=== PATIENT | female | born 1995 | race Caucasian/White ===

== ENCOUNTER 2016-08-23 12:04 | Emergency (ER) | payer SELFPAY ==
[~2016-08-23] VITALS: Ht 167.6 cm; Wt 135.0 kg
[2016-08-23 12:25] VITALS: BP 140/86
== END 2016-08-23 13:27 | disposition home or self-care (01) ==
LOC: ED 12:59
DX: J03.00 Acute streptococcal tonsillitis, unspecified (principal); F41.9 Anxiety disorder, unspecified; F17.210 Nicotine dependence, cigarettes, uncomplicated
CPT/HCPCS: 99283

== ENCOUNTER 2017-12-25 20:00 | Emergency (ER) | payer SELFPAY ==
[~2017-12-25] VITALS: Ht 167.6 cm; Wt 155.4 kg
[2017-12-25 20:50] LABS: BASOPHILS # (AUTO) 0.07 x10^3/uL (0-0.1); BASOPHILS % (AUTO) 1 % (0-1); EOSINOPHILS # (AUTO) 0.22 x10^3/uL (0-0.4); EOSINOPHILS % (AUTO) 2 % (1-7); LYMPHOCYTES % (AUTO) 30 % (22-44); MD NO; MEAN CORPUSCULAR HEMOGLOBIN 27.9 pg (27.0-34.8); MEAN CORPUSCULAR HGB CONC 34.3 g/dL (32.4-35.8); MEAN CORPUSCULAR VOLUME 81.3 fL (80-100); MEAN PLATELET VOLUME 7.7 fL (7.4-10.4); MONOCYTES % (AUTO) 8 % (2-9); NEUTROPHILS # (AUTO) 6.23 x10^3/uL (1.8-6.8); NEUTROPHILS % (AUTO) 60 % (42-75); PLATELET COUNT 339 x10^3/uL (130-400); RED BLOOD COUNT 4.06 x10^6/uL (3.82-5.3); RED CELL DISTRIBUTION WIDTH 12.8 % (9.6-15.2)
[2017-12-25 20:53] LABS: ALBUMIN 2.9 g/dL (3.4-5.0); ANION GAP 8 mmol/L (5-15); CALCIUM 8.5 mg/dL (8.5-10.1); CHLORIDE 107 mmol/L (98-107)
[2017-12-25 21:42] VITALS: BP 136/73
== END 2017-12-25 22:44 | disposition home or self-care (01) ==
LOC: ED 21:17
DX: L03.116 Cellulitis of left lower limb (principal); R60.0 Localized edema
CPT/HCPCS: 36415; 80048; 82040; 85025; 93005; 93970; 99285

== ENCOUNTER 2018-04-22 03:13 | Emergency (ER) | payer MEDICAID ==
[~2018-04-22] VITALS: Ht 167.6 cm; Wt 163.8 kg
[2018-04-22 03:16] VITALS: BP 141/84
[2018-04-22] MEDS ORDERED: DEXAMETHASONE 4 MG TABLET PO ONE (04:00)
[2018-04-22] MEDS ORDERED: ALBUTEROL/IPRATROPIUM 2.5MG/0.5MG, 3 ML NPPB ONE (04:00)
[2018-04-22] MEDS ORDERED: IBUPROFEN 200 MG TABLET PO ONE (04:00)
[2018-04-22] MEDS ORDERED: DEXAMETHASONE 4 MG TABLET ONE (04:03)
[2018-04-22] MEDS ORDERED: IBUPROFEN 600 MG TABLET ONE (04:03)
[2018-04-22 04:13] LABS: RAPID INFLUENZA A Negative (Negative); RAPID INFLUENZA B Negative (Negative)
== END 2018-04-22 04:46 | disposition home or self-care (01) ==
LOC: ED 03:50
DX: J02.8 Acute pharyngitis due to other specified organisms (principal); B97.89 Other viral agents as the cause of diseases classified elsewhere; J20.9 Acute bronchitis, unspecified; F41.1 Generalized anxiety disorder; F32.9 Major depressive disorder, single episode, unspecified; F17.200 Nicotine dependence, unspecified, uncomplicated
CPT/HCPCS: 71046; 87081; 87147; 87400; 87880; 93005; 94640; 99285; 99406; J7620

== ENCOUNTER 2018-05-26 07:34 | Inpatient (IN) | payer MEDICAID ==
[~2018-05-26] VITALS: Ht 167.6 cm; Wt 165.0 kg
[2018-05-26] MEDS ORDERED: CHARCOAL/SORBITOL 50 GM/240 ML PO ONE (08:00)
[2018-05-26 08:01] LABS: BASOPHILS # (AUTO) 0.08 x10^3/uL (0-0.1); BASOPHILS % (AUTO) 1 % (0-1); EOSINOPHILS # (AUTO) 0.34 x10^3/uL (0-0.4); EOSINOPHILS % (AUTO) 2 % (1-7); LYMPHOCYTES # (AUTO) 3.51 x10^3/uL (1-3.4); LYMPHOCYTES % (AUTO) 25 % (22-44); MD NO; MEAN CORPUSCULAR HEMOGLOBIN 27.5 pg (27.0-34.8); MEAN CORPUSCULAR HGB CONC 34.1 g/dL (32.4-35.8); MEAN CORPUSCULAR VOLUME 80.7 fL (80-100); MEAN PLATELET VOLUME 7.7 fL (7.4-10.4); MONOCYTES # (AUTO) 0.82 x10^3/uL (0.2-0.8); MONOCYTES % (AUTO) 6 % (2-9); NEUTROPHILS # (AUTO) 9.11 x10^3/uL (1.8-6.8); NEUTROPHILS % (AUTO) 66 % (42-75); PLATELET COUNT 368 x10^3/uL (130-400); RED BLOOD COUNT 4.35 x10^6/uL (3.82-5.3); RED CELL DISTRIBUTION WIDTH 13.2 % (9.6-15.2)
[2018-05-26 08:09] LABS: ALBUMIN 3.7 g/dL (3.4-5.0); ANION GAP 10 mmol/L (5-15); CALCIUM 8.6 mg/dL (8.5-10.1); CHLORIDE 105 mmol/L (98-107)
[2018-05-26 08:14] LABS: ALANINE AMINOTRANSFERASE 43 U/L (12-78); ALKALINE PHOSPHATASE 77 U/L (45-117); BILIRUBIN,TOTAL 0.8 mg/dL (0.2-1.0); CREATININE 0.74 mg/dL (0.55-1.02); TOTAL PROTEIN 8.1 g/dL (6.4-8.2)
[2018-05-26 08:17] LABS: AMPHETAMINE SCREEN, URINE Positive (Negative); BARBITURATE SCREEN, URINE Negative (Negative); BENZODIAZEPINE SCREEN, URINE Negative (Negative); CANNABINOID SCREEN, URINE Positive (Negative); COCAINE SCREEN, URINE Negative (Negative); METHADONE SCREEN, URINE Negative (Negative); OPIATE SCREEN, URINE Negative (Negative)
[2018-05-26 08:31] LABS: SALICYLATE LEVEL < 1.7 mg/dL (2.8-20.0)
[2018-05-26 08:32] LABS: ACETAMINOPHEN < 2 mcg/mL (10-30)
[2018-05-26] MEDS ORDERED: ONDANSETRON ODT 8 MG ONE (08:48)
[2018-05-26] MEDS ORDERED: ONDANSETRON ODT 4 MG PO ONE (09:00)
[2018-05-26] MEDS ORDERED: BISACODYL 10 MG SUPP PR PRN (10:00)
[2018-05-26] MEDS ORDERED: POLYETHYLENE GLYCOL 17 GM PACKET PO PRN (10:00)
[2018-05-26] MEDS ORDERED: ACETAMINOPHEN 325 MG TABLET PO PRN (10:00)
[2018-05-26] MEDS ORDERED: ONDANSETRON 2MG/ML, 2ML IVPush PRN (10:00)
[2018-05-26] MEDS ORDERED: DOCUSATE 100 MG CAPSULE PO PRN (10:00)
[2018-05-26] MEDS ORDERED: HALOPERIDOL 1 MG TABLET PO PRN (10:00)
[2018-05-26 11:01] VITALS: BP 158/86
[2018-05-26] MEDS: ENOXAPARIN 40 MG/0.4 ML SQ SCH (11:49)
[2018-05-26] MEDS: NS + 20MEQ KCL 1,000 ML IV SCH (11:49)
[2018-05-26] MEDS: HALOPERIDOL 0.5 MG TABLET PO PRN ×2 (12:10→20:24)
[2018-05-26] MEDS ORDERED: SERT50TA PO (14:22)
[2018-05-26 15:57] VITALS: BP 129/68
[2018-05-26 19:10] VITALS: BP 105/56
[2018-05-27 00:58] VITALS: BP 133/75
[2018-05-27] MEDS: NS + 20MEQ KCL 1,000 ML IV SCH (03:04)
[2018-05-27 05:12] LABS: ANION GAP 9 mmol/L (5-15); CALCIUM 8.4 mg/dL (8.5-10.1); CHLORIDE 107 mmol/L (98-107)
[2018-05-27 05:16] LABS: ALANINE AMINOTRANSFERASE 33 U/L (12-78); ALKALINE PHOSPHATASE 65 U/L (45-117); BILIRUBIN,TOTAL 0.7 mg/dL (0.2-1.0); CREATININE 0.68 mg/dL (0.55-1.02)
[2018-05-27 05:36] LABS: BASOPHILS # (AUTO) 0.03 x10^3/uL (0-0.1); BASOPHILS % (AUTO) 0 % (0-1); EOSINOPHILS # (AUTO) 0.41 x10^3/uL (0-0.4); EOSINOPHILS % (AUTO) 4 % (1-7); LYMPHOCYTES # (AUTO) 3.12 x10^3/uL (1-3.4); LYMPHOCYTES % (AUTO) 33 % (22-44); MD NO; MEAN CORPUSCULAR HEMOGLOBIN 27.9 pg (27.0-34.8); MEAN CORPUSCULAR HGB CONC 33.9 g/dL (32.4-35.8); MEAN CORPUSCULAR VOLUME 82.3 fL (80-100); MEAN PLATELET VOLUME 7.9 fL (7.4-10.4); MONOCYTES # (AUTO) 0.77 x10^3/uL (0.2-0.8); MONOCYTES % (AUTO) 8 % (2-9); NEUTROPHILS # (AUTO) 5.14 x10^3/uL (1.8-6.8); NEUTROPHILS % (AUTO) 54 % (42-75); PLATELET COUNT 334 x10^3/uL (130-400); RED BLOOD COUNT 3.95 x10^6/uL (3.82-5.3); RED CELL DISTRIBUTION WIDTH 13.4 % (9.6-15.2)
[2018-05-27 06:52] VITALS: BP 116/75
[2018-05-27] MEDS: ENOXAPARIN 40 MG/0.4 ML SQ SCH (14:00)
[2018-05-27 14:11] VITALS: BP 114/72
[2018-05-27] MEDS ORDERED: LURASIDONE 20 MG TABLET PO SCH (17:00)
[2018-05-27 20:57] VITALS: BP 112/75
[2018-05-28 01:08] VITALS: BP 117/76
[2018-05-28 07:46] VITALS: BP 138/76
[2018-05-28] MEDS: ENOXAPARIN 40 MG/0.4 ML SQ SCH (12:00)
[2018-05-28] MEDS ORDERED: LURA20TA PO (12:36)
== END 2018-05-28 14:34 | disposition home or self-care (01) | DRG 918 ==
LOC: ED 08:40 → EDIP 08:59 → 5SO 10:41 → DCLOUNGE 05-28 14:28
PROVIDERS: ADMIT Family Medicine; ATTEND Family Medicine
DX: T43.221A Poisoning by selective serotonin reuptake inhibitors, accidental (unintentional), initial encounter (principal); I49.3 Ventricular premature depolarization; F41.1 Generalized anxiety disorder; F31.9 Bipolar disorder, unspecified; F12.90 Cannabis use, unspecified, uncomplicated; F60.3 Borderline personality disorder; F43.10 Post-traumatic stress disorder, unspecified; F25.9 Schizoaffective disorder, unspecified; F17.200 Nicotine dependence, unspecified, uncomplicated; E87.6 Hypokalemia; F41.0 Panic disorder [episodic paroxysmal anxiety]; Z81.8 Family history of other mental and behavioral disorders; Z91.5 Personal history of self-harm; Z59.0 Homelessness; Z82.49 Family history of ischemic heart disease and other diseases of the circulatory system; Y92.89 Other specified places as the place of occurrence of the external cause
CPT/HCPCS: 36415; 80053; 80307; 80329; 84703; 85025; 90656; 93005; 99285; G0378; J1650; J3480; Q0162; G0480

== ENCOUNTER 2018-07-04 09:35 | Emergency (ER) | payer MEDICAID ==
[~2018-07-04] VITALS: Ht 167.6 cm; Wt 157.0 kg
[~2018-07-04 09:35] MED LIST: LURA20TA PO; SERT50TA PO
[2018-07-04 09:40] VITALS: BP 151/79
--- NOTE | 2018-07-04 09:47 | NUR ---
PT HAS MULTIPLE SUPERFICIAL SCABS TO BILAT FOREARM, SELF INUD Addendum: 07/04/18 at 0948 by BARBARA PT HAS MULTIPLE SUPERFICIAL SCABS/CUT GOMEZ TO BILAT FOREARM, SELF INDUCED. DENIES ANY SI/HI.
[2018-07-04] MEDS ORDERED: IBUPROFEN 600 MG TABLET PO ONE (10:30)
[2018-07-04] MEDS ORDERED: IBUPROFEN 600 MG TABLET ONE (11:19)
== END 2018-07-04 12:48 | disposition home or self-care (01) ==
LOC: ED 12:06
DX: G89.11 Acute pain due to trauma (principal); M25.562 Pain in left knee; F32.9 Major depressive disorder, single episode, unspecified; X58.XXXA Exposure to other specified factors, initial encounter; Y93.89 Activity, other specified; Y92.89 Other specified places as the place of occurrence of the external cause; Y99.8 Other external cause status
CPT/HCPCS: 29505; 99283

== ENCOUNTER 2018-11-19 16:43 | Emergency (ER) | payer MEDICAID ==
[~2018-11-19] VITALS: Ht 167.6 cm; Wt 172.9 kg
[2018-11-19 16:50] VITALS: BP 147/102
== END 2018-11-19 17:31 | disposition home or self-care (01) ==
LOC: ED 17:26
DX: L50.0 Allergic urticaria (principal); F41.1 Generalized anxiety disorder; F32.9 Major depressive disorder, single episode, unspecified; F17.200 Nicotine dependence, unspecified, uncomplicated
CPT/HCPCS: 99281

== ENCOUNTER 2019-07-25 08:01 | Emergency (ER) | payer SELFPAY ==
[~2019-07-25] VITALS: Ht 167.6 cm; Wt 168.7 kg
[2019-07-25 08:12] VITALS: BP 137/104
== END 2019-07-25 09:01 | disposition home or self-care (01) ==
LOC: ED 08:55
DX: J02.0 Streptococcal pharyngitis (principal)
CPT/HCPCS: 99283